=== PATIENT | male | born 1970 | race Caucasian/White ===

== ENCOUNTER → 2023-10-28 16:09 | Outpatient (REF) | payer OTHER, SELFPAY | LOC: RAD 16:09 | PROVIDERS: ATTENDING PHYSICIAN Nurse Practitioner Family; FAMILY PHYSICIAN Internal Medicine | DX: R05.3 Chronic cough (principal) | CPT/HCPCS: 71046 ==

== ENCOUNTER → 2023-11-07 14:00 | Outpatient (REF) | payer OTHER, SELFPAY | LOC: RAD 14:00 | PROVIDERS: ATTENDING PHYSICIAN Internal Medicine Hematology & Oncology; FAMILY PHYSICIAN Internal Medicine | DX: C18.4 Malignant neoplasm of transverse colon (principal) | CPT/HCPCS: 71260; 74177; Q9967 ==

== ENCOUNTER 2023-11-19 09:03 | Outpatient (REF) | payer OTHER, SELFPAY ==
[2023-11-19] VITALS (11 sets, daily range): BP systolic 88–111; BP diastolic 64–82
[2023-11-19 09:48] LABS: Hematocrit 36.2 % (39.0-52.0); Mean Corp Hgb Conc. 33.1 g/dL (33.0-37.0); Mean Corpuscular Hgb 30.4 pg (27.0-31.0); Mean Corpuscular Volume 91.6 fL (80.0-94.0); Mean Platelet Volume 10.8 fL (7.4-10.4); Platelet Count 151 10^3/uL (130-400); Red Blood Cell Count 3.95 10^6/uL (4.70-6.10); Red Cell Dist. Width 14.7 % (11.5-14.5); White Blood Cell Count 5.5 10^3/uL (4.8-10.8)
[2023-11-19 09:51] LABS: INR 1.22; PT 15.2 Sec (11.4-14.6)
[2023-11-19] MEDS: TYLENOL 650 MG PO (13:38)
== END 2023-11-19 13:54 | disposition home or self-care (01) ==
LOC: RADI 09:03
PROVIDERS: ATTENDING PHYSICIAN Internal Medicine Hematology & Oncology; FAMILY PHYSICIAN Internal Medicine
DX: C78.7 Secondary malignant neoplasm of liver and intrahepatic bile duct (principal); C18.4 Malignant neoplasm of transverse colon
CPT/HCPCS: 88305; 88307; 36415; 47000; 76705; 76942; 85027; 85610; 88333; 88341; 88342; 99152; 99153

== ENCOUNTER → 2023-12-02 07:35 | Outpatient (REF) | payer OTHER, SELFPAY ==
[2023-12-02 07:45] VITALS: BP 108/78; BP_SYST 84
[2023-12-02 09:10] VITALS: BP 104/75; BP_SYST 79
[2023-12-02 09:19] VITALS: BP 104/75; BP_SYST 79
[2023-12-02 09:20] VITALS: BP 104/75
[2023-12-02 11:40] LABS: Body Fluid Mononuclear 92.9 %; Body Fluid Polymorphonuclear 7.1 %; Body Fluid WBC 580 /CUMM
[2023-12-02 12:19] LABS: Body Fluid Second Tech EM
== END ==
LOC: RADI 07:35
PROVIDERS: ATTENDING PHYSICIAN Internal Medicine Hematology & Oncology; FAMILY PHYSICIAN Internal Medicine
DX: R18.8 Other ascites (principal)
CPT/HCPCS: 49083; 89051

== ENCOUNTER → 2023-12-06 08:39 | Outpatient (REF) | payer OTHER, SELFPAY ==
[2023-12-06 08:56] VITALS: BP 106/78; BP_SYST 81
[2023-12-06] MEDS: ANCEF 10 IV (09:50)
[2023-12-06 10:50] VITALS: BP 103/77; BP_SYST 75
[2023-12-06 11:11] VITALS: BP 95/75
== END ==
LOC: RADI 08:39
PROVIDERS: ATTENDING PHYSICIAN Internal Medicine Hematology & Oncology; FAMILY PHYSICIAN Internal Medicine
DX: C18.4 Malignant neoplasm of transverse colon (principal)
CPT/HCPCS: 36561; 76937; 77001; 99152; 99153; C1788

== ENCOUNTER → 2023-12-12 10:33 | Outpatient (REF) | payer OTHER, SELFPAY ==
[2023-12-12 12:05] VITALS: BP 119/84; BP_SYST 84
[2023-12-12 12:30] VITALS: BP 106/76
[2023-12-12 14:13] LABS: Body Fluid Mononuclear 87.1 %; Body Fluid Polymorphonuclear 12.9 %; Body Fluid WBC 766 /CUMM
[2023-12-12 14:41] LABS: Body Fluid Second Tech LD
== END ==
LOC: RADI 10:33
PROVIDERS: ATTENDING PHYSICIAN Internal Medicine Hematology & Oncology; FAMILY PHYSICIAN Internal Medicine
DX: C80.1 Malignant (primary) neoplasm, unspecified (principal); R18.0 Malignant ascites
CPT/HCPCS: 49083; 89051

== ENCOUNTER → 2023-12-17 12:24 | Outpatient (REF) | payer OTHER, SELFPAY ==
[2023-12-17 12:43] VITALS: BP 109/77; BP_SYST 78
[2023-12-17 13:20] VITALS: BP 113/84
[2023-12-17 14:19] LABS: Body Fluid Mononuclear 88.6 %; Body Fluid Polymorphonuclear 11.4 %; Body Fluid WBC 317 /CUMM
[2023-12-17 14:20] LABS: Body Fluid Second Tech HB
== END ==
LOC: RADI 12:24
PROVIDERS: ATTENDING PHYSICIAN Internal Medicine Hematology & Oncology; FAMILY PHYSICIAN Internal Medicine
DX: C18.4 Malignant neoplasm of transverse colon (principal); R18.0 Malignant ascites
CPT/HCPCS: 49083; 89051

== ENCOUNTER → 2023-12-25 07:49 | Outpatient (REF) | payer OTHER, SELFPAY ==
[2023-12-25 08:21] VITALS: BP 109/77; BP_SYST 90
[2023-12-25 09:03] VITALS: BP 105/74
[2023-12-25 11:48] LABS: Body Fluid Mononuclear 94.6 %; Body Fluid Polymorphonuclear 5.4 %; Body Fluid WBC 447 /CUMM
[2023-12-25 11:55] LABS: Body Fluid Second Tech CF
== END ==
LOC: RADI 07:49
PROVIDERS: ATTENDING PHYSICIAN Internal Medicine Hematology & Oncology; FAMILY PHYSICIAN Internal Medicine
DX: C18.4 Malignant neoplasm of transverse colon (principal); R18.0 Malignant ascites
CPT/HCPCS: 49083; 89051

== ENCOUNTER → 2023-12-26 10:14 | Outpatient (REF) | payer OTHER, SELFPAY | LOC: RAD 10:14 | PROVIDERS: ATTENDING PHYSICIAN Internal Medicine Hematology & Oncology; FAMILY PHYSICIAN Family Medicine | DX: I82.499 Acute embolism and thrombosis of other specified deep vein of unspecified lower extremity (principal); C18.4 Malignant neoplasm of transverse colon; R16.1 Splenomegaly, not elsewhere classified; K76.89 Other specified diseases of liver | CPT/HCPCS: 76700; 93975 ==

== ENCOUNTER → 2024-01-01 08:10 | Outpatient (REF) | payer OTHER, SELFPAY ==
[2024-01-01 08:25] VITALS: BP 106/78; BP_SYST 84
[2024-01-01 08:53] VITALS: BP 100/73
[2024-01-01 09:36] LABS: Body Fluid Mononuclear 95.4 %; Body Fluid Polymorphonuclear 4.6 %; Body Fluid WBC 433 /CUMM
[2024-01-01 09:39] LABS: Body Fluid Second Tech EF
== END ==
LOC: RADI 08:10
PROVIDERS: ATTENDING PHYSICIAN Internal Medicine Hematology & Oncology; FAMILY PHYSICIAN Internal Medicine
DX: C80.1 Malignant (primary) neoplasm, unspecified (principal); R18.0 Malignant ascites
CPT/HCPCS: 49083; 89051

== ENCOUNTER → 2024-01-08 12:59 | Outpatient (REF) | payer OTHER, SELFPAY ==
[2024-01-08 13:19] VITALS: BP 119/66; BP_SYST 73
[2024-01-08 14:31] LABS: Body Fluid Mononuclear 92.9 %; Body Fluid Polymorphonuclear 7.1 %; Body Fluid WBC 771 /CUMM
[2024-01-08 14:33] LABS: Body Fluid Second Tech AMA
== END ==
LOC: RADI 12:59
PROVIDERS: ATTENDING PHYSICIAN Internal Medicine Hematology & Oncology; FAMILY PHYSICIAN Internal Medicine
DX: R18.8 Other ascites (principal)
CPT/HCPCS: 49083; 89051

== ENCOUNTER → 2024-01-15 08:26 | Outpatient (REF) | payer OTHER, SELFPAY ==
[2024-01-15 08:30] VITALS: BP 122/89; BP_SYST 95
== END ==
LOC: RADI 08:26
PROVIDERS: ATTENDING PHYSICIAN Internal Medicine Hematology & Oncology; FAMILY PHYSICIAN Internal Medicine
DX: C80.1 Malignant (primary) neoplasm, unspecified (principal); R18.0 Malignant ascites; Z53.8 Procedure and treatment not carried out for other reasons
CPT/HCPCS: 76705

== ENCOUNTER → 2024-03-04 07:50 | Outpatient (REF) | payer OTHER, SELFPAY | LOC: HWRAD 07:50 | PROVIDERS: ATTENDING PHYSICIAN Nurse Practitioner Primary Care; FAMILY PHYSICIAN Internal Medicine | DX: C18.4 Malignant neoplasm of transverse colon (principal); R16.1 Splenomegaly, not elsewhere classified; K76.89 Other specified diseases of liver | CPT/HCPCS: 71260; 74177; Q9967 ==

== ENCOUNTER → 2024-03-26 16:54 | Outpatient (REF) | payer OTHER, SELFPAY ==
[2024-03-26 17:33] LABS: Ammonia 20 umol/L (9-30)
[2024-03-26 17:36] LABS: ALT (SGPT) 146 U/L (0-50); AST (SGOT) 142 U/L (17-59); Albumin 2.5 g/dl (3.5-5.0); Blood Urea Nitrogen 20 mg/dl (9-20); Calcium 8.3 mg/dl (8.4-10.2); Carbon Dioxide 29 mmol/L (22-30); Chloride 93 mmol/L (98-107); Glucose 120 mg/dl (70-99); Potassium 5.3 mmol/L (3.5-5.1); Sodium 127 mmol/L (135-145); Total Bilirubin 7.6 mg/dl (0.2-1.3); Total Protein 4.8 g/dl (6.3-8.2); eGFR > 60.00
[2024-03-26 17:48] LABS: Alkaline Phosphatase 1982 U/L (38-126)
== END ==
LOC: REG 16:54
PROVIDERS: ATTENDING PHYSICIAN Nurse Practitioner Adult Health; FAMILY PHYSICIAN Internal Medicine
DX: C18.4 Malignant neoplasm of transverse colon (principal); R16.1 Splenomegaly, not elsewhere classified; K76.89 Other specified diseases of liver
CPT/HCPCS: 36415; 80053; 82140; 82248

== ENCOUNTER → 2024-04-03 07:23 | Outpatient (REF) | payer OTHER, SELFPAY ==
[2024-04-03 07:50] VITALS: BP 118/88; BP_SYST 112
[2024-04-03 08:30] VITALS: BP 113/89
[2024-04-03 08:46] LABS: ALT (SGPT) 204 U/L (0-50); AST (SGOT) 251 U/L (17-59); Albumin 2.2 g/dl (3.5-5.0); Alkaline Phosphatase 2162 U/L (38-126); Blood Urea Nitrogen 38 mg/dl (9-20); Calcium 8.4 mg/dl (8.4-10.2); Carbon Dioxide 20 mmol/L (22-30); Chloride 91 mmol/L (98-107); Direct Bilirubin 14.2 mg/dl (0.0-0.4); Glucose 93 mg/dl (70-99); Potassium 6.1 mmol/L (3.5-5.1); Sodium 122 mmol/L (135-145); Total Bilirubin 16.1 mg/dl (0.2-1.3); Total Protein 4.9 g/dl (6.3-8.2); eGFR 47.02
[2024-04-03 09:21] LABS: Body Fluid Mononuclear 7.9 %; Body Fluid Polymorphonuclear 92.1 %; Body Fluid WBC 35600 /CUMM
[2024-04-03 09:25] LABS: Body Fluid Second Tech ASW
== END ==
LOC: RADI 07:23
PROVIDERS: ATTENDING PHYSICIAN Internal Medicine Hematology & Oncology; FAMILY PHYSICIAN Internal Medicine; OTHER PHYSICIAN Nurse Practitioner Adult Health
DX: C18.4 Malignant neoplasm of transverse colon (principal); R18.0 Malignant ascites
CPT/HCPCS: 36415; 49083; 80053; 82248; 89051

== ENCOUNTER 2024-04-03 15:20 | Inpatient (IN) | payer OTHER, SELFPAY ==
[2024-04-03] VITALS (17 sets, daily range): BP systolic 91–124; BP diastolic 66–91; BMI 25.2; BMI 25.5
--- NOTE | 2024-04-03 09:26 | ED.GENMED ---
History of Present Illness
<Rolly Silva PA-C - Last Filed: 04/03/24 14:11>
General
Chief Complaint: Abdominal Pain
Source: patient
Exam Limitations: none
Time Seen by Provider: 04/03/24 09:10
History of Present Illness
History of Present Illness:
53-year-old male with known history of metastatic colon cancer with mets to the liver and lung presents from the interventional radiology after paracentesis. He had 3900 mL fluid drained from his abdomen. He notes increased pain to the upper
abdomen and lower chest specifically with breathing. This has been getting worse over the past several days. He started a new chemotherapy on the fourth of this month. Since then he has been jaundiced and has had more fluid in his abdomen. He is
moving his bowels and has been no vomiting. Interventional radiology concerned about his pain and sent him over for evaluation. Also interventional radiology had outpatient labs drawn which demonstrated low sodium and high potassium.
Phy Exam
<Rolly Silva PA-C - Last Filed: 04/03/24 14:11>
Physical Exam
Physical Exam:
General: Ill-appearing male quite jaundiced no acute respiratory distress
HEENT: Normocephalic mucosa dry neck is supple
Heart: Regular rate and rhythm
Lungs: Clear no wheeze abdomen soft diffusely tender no guarding or rebound
Skin is jaundiced
Extremities: Mild pitting edema bilateral lower extremities
Neurologic exam: Alert and oriented x 3 no facial asymmetry or slurred speech
Course
<Rolly Silva PA-C - Last Filed: 04/03/24 14:11>
Orders/Labs/Results
Orders:
Orders
04/03/24 08:50
Electrocardiogram (*1) Urgent
Reason for Study: Fatigue / Weakness
Other Reason for Exam: Hyperkalemia
EKG- Treatment ONCE
04/03/24 09:24
CT Pe/abd/pel W Urgent
Reason For Exam: PLEURITIC PAIN, ABD PAIN
Morphine Sulfate 4 mg IV NOW STA
Ondansetron HCl [Zofran] 4 mg PO NOW STA
04/03/24 09:49
Osmolality, Random Urine Urgent
Urine Sodium Urgent
04/03/24 09:58
Ondansetron Injectable [Zofran] 4 mg IV NOW STA
04/03/24 10:15
Complete Blood Count/With Diff Urgent
Comprehensive Metabolic Panel Urgent
Lipase Urgent
PTT Urgent
Prothrombin Time Urgent
Serum Osmolality Urgent
Albumin Human 25% 100 ml [Flexbumin] 25 grams in 100 ml IV TODAY
04/03/24 11:18
Piperacillin/Tazo 3.375 Gram [Zosyn] 3.375 gram in 50 ml IV NOW
Vancomycin [Vancocin] 2,000 mg 0.9% Sodium Chloride 500 ml [Nss] 500 ml IV NOW
04/03/24 11:47
Lactic Acid Q4H
Comment: CANCEL 2nd LACTIC ACID IF 1st LACTIC ACID IS LESS THAN 2
Blood Culture Q30M
CLAUDIA Source: Blood/Venous
Specimen Description:
04/03/24 12:00
Blood Culture Q30M
CLAUDIA Source: Blood/Venous
Specimen Description:
04/03/24 13:11
Dextrose 50%-Water [Dextrose 50% Syringe] 25 grams IV NOW STA
Insulin Human Regular [Novolin R] 10 units IV NOW STA
04/03/24 13:12
Urinalysis Routine
Urine Creatinine Routine
Urine Sodium Routine
04/03/24 13:15
Dextrose 5%/Water 1000 ml [D5w] 1,000 ml Sodium Bicarbonate 150 meq IV 70 mls/hr
04/03/24 15:30
Lactic Acid Q4H
Comment: CANCEL 2nd LACTIC ACID IF 1st LACTIC ACID IS LESS THAN 2
04/03/24 17:00
Basic Metabolic Panel Routine
Abnormal Lab Results
04/03/24 04/03/24
10:15 11:47
WBC 51.6 H* 10^3/uL
(4.8-10.8)
MCV 98.5 H fL
(80.0-94.0)
MCH 32.2 H pg
(27.0-31.0)
MCHC 32.7 L g/dL
(33.0-37.0)
RDW 23.3 H %
(11.5-14.5)
Abs Immat Gran (auto) 1.4 H 10^3/uL
(0-0.05)
Absolute Neuts (auto) 45.1 H 10^3/uL
(1.4-6.5)
Absolute Monos (auto) 3.4 H 10^3/uL
(0.1-0.6)
Immature Gran % 2.7 H %
(0-0.5)
Neutrophils % 87.4 H %
(42.2-75.2)
Lymphocytes % 2.3 L %
(20.5-51.1)
PT 21.8 H Sec
(11.4-14.6)
APTT 49.9 H Sec
(23.4-35.0)
Sodium 123 L mmol/L
(135-145)
Potassium 5.8 H mmol/L
(3.5-5.1)
Chloride 91 L mmol/L
(98-107)
Carbon Dioxide 17 L mmol/L
(22-30)
BUN 40 H mg/dl
(9-20)
Creatinine 1.5 H mg/dL
(0.7-1.3)
Serum Osmolality 273 L mOsm/kg
(275-300)
Lactic Acid 5.7 H* mmol/L
(0.7-2.0)
Total Bilirubin 16.4 H mg/dl
(0.2-1.3)
AST 267 H U/L
(17-59)
ALT 188 H U/L
(0-50)
Alkaline Phosphatase 2301 H U/L
(38-126)
Total Protein 5.1 L g/dl
(6.3-8.2)
Albumin 2.2 L g/dl
(3.5-5.0)
04/03/24 10:15
Vital Signs
Initial and Last Documented VS:
Initial Vital Signs
Temp Pulse Resp BP Pulse Ox
97.6 F 116 20 114/81 96
04/03/24 08:52 04/03/24 08:52 04/03/24 08:52 04/03/24 08:52 04/03/24 08:52
Last Documented Vital Signs
Temp Pulse Resp BP Pulse Ox
97.6 F 98 16 110/75 93
04/03/24 08:52 04/03/24 13:45 04/03/24 14:05 04/03/24 14:00 04/03/24 13:45
<Christopher Lewis MD - Last Filed: 04/03/24 09:42>
Orders/Labs/Results
Orders:
Orders
04/03/24 08:50
Electrocardiogram (*1) Urgent
Reason for Study: Fatigue / Weakness
Other Reason for Exam: Hyperkalemia
EKG- Treatment ONCE
04/03/24 09:24
CT Pe/abd/pel W Urgent
Reason For Exam: PLEURITIC PAIN, ABD PAIN
Morphine Sulfate 4 mg IV NOW STA
Ondansetron HCl [Zofran] 4 mg PO NOW STA
04/03/24 09:49
Osmolality, Random Urine Urgent
Urine Sodium Urgent
04/03/24 09:58
Ondansetron Injectable [Zofran] 4 mg IV NOW STA
04/03/24 10:15
Complete Blood Count/With Diff Urgent
Comprehensive Metabolic Panel Urgent
Lipase Urgent
PTT Urgent
Prothrombin Time Urgent
Serum Osmolality Urgent
Albumin Human 25% 100 ml [Flexbumin] 25 grams in 100 ml IV TODAY
04/03/24 11:18
Piperacillin/Tazo 3.375 Gram [Zosyn] 3.375 gram in 50 ml IV NOW
Vancomycin [Vancocin] 2,000 mg 0.9% Sodium Chloride 500 ml [Nss] 500 ml IV NOW
04/03/24 11:47
Lactic Acid Q4H
Comment: CANCEL 2nd LACTIC ACID IF 1st LACTIC ACID IS LESS THAN 2
Blood Culture Q30M
CLAUDIA Source: Blood/Venous
Specimen Description:
04/03/24 12:00
Blood Culture Q30M
CLAUDIA Source: Blood/Venous
Specimen Description:
04/03/24 13:11
Dextrose 50%-Water [Dextrose 50% Syringe] 25 grams IV NOW STA
Insulin Human Regular [Novolin R] 10 units IV NOW STA
04/03/24 13:12
Urinalysis Routine
Urine Creatinine Routine
Urine Sodium Routine
04/03/24 13:15
Dextrose 5%/Water 1000 ml [D5w] 1,000 ml Sodium Bicarbonate 150 meq IV 70 mls/hr
04/03/24 15:30
Lactic Acid Q4H
Comment: CANCEL 2nd LACTIC ACID IF 1st LACTIC ACID IS LESS THAN 2
04/03/24 17:00
Basic Metabolic Panel Routine
Abnormal Lab Results
04/03/24 04/03/24
10:15 11:47
WBC 51.6 H* 10^3/uL
(4.8-10.8)
MCV 98.5 H fL
(80.0-94.0)
MCH 32.2 H pg
(27.0-31.0)
MCHC 32.7 L g/dL
(33.0-37.0)
RDW 23.3 H %
(11.5-14.5)
Abs Immat Gran (auto) 1.4 H 10^3/uL
(0-0.05)
Absolute Neuts (auto) 45.1 H 10^3/uL
(1.4-6.5)
Absolute Monos (auto) 3.4 H 10^3/uL
(0.1-0.6)
Immature Gran % 2.7 H %
(0-0.5)
Neutrophils % 87.4 H %
(42.2-75.2)
Lymphocytes % 2.3 L %
(20.5-51.1)
PT 21.8 H Sec
(11.4-14.6)
APTT 49.9 H Sec
(23.4-35.0)
Sodium 123 L mmol/L
(135-145)
Potassium 5.8 H mmol/L
(3.5-5.1)
Chloride 91 L mmol/L
(98-107)
Carbon Dioxide 17 L mmol/L
(22-30)
BUN 40 H mg/dl
(9-20)
Creatinine 1.5 H mg/dL
(0.7-1.3)
Serum Osmolality 273 L mOsm/kg
(275-300)
Lactic Acid 5.7 H* mmol/L
(0.7-2.0)
Total Bilirubin 16.4 H mg/dl
(0.2-1.3)
AST 267 H U/L
(17-59)
ALT 188 H U/L
(0-50)
Alkaline Phosphatase 2301 H U/L
(38-126)
Total Protein 5.1 L g/dl
(6.3-8.2)
Albumin 2.2 L g/dl
(3.5-5.0)
04/03/24 10:15
Vital Signs
Initial and Last Documented VS:
Initial Vital Signs
Temp Pulse Resp BP Pulse Ox
97.6 F 116 20 114/81 96
04/03/24 08:52 04/03/24 08:52 04/03/24 08:52 04/03/24 08:52 04/03/24 08:52
Last Documented Vital Signs
Temp Pulse Resp BP Pulse Ox
97.6 F 98 16 110/75 93
04/03/24 08:52 04/03/24 13:45 04/03/24 14:05 04/03/24 14:00 04/03/24 13:45
<Rolly Silva PA-C - Last Filed: 04/03/24 14:11>
MDM/Problems Addressed
Differential Diagnosis Includes:
Patient here with increased lower chest and upper abdominal pain with known history of colon cancer with metastasis to the liver and lung. The pain is pleuritic. Consider worsening progression of underlying disease versus PE versus ascites. He
had almost 4 L drained this morning. Review of labs drawn this morning demonstrated a sodium of 122 and a potassium of 6.1 with a bilirubin of 16. Will treat patient's pain with morphine and Zofran. Did order PE study of chest send CT scan of
abdomen
<Rolly Silva PA-C - Last Filed: 04/03/24 14:11>
*Critical Care Note
Total Time (30-74mins, 75-104mins- exclusive of procedures): Not Applicable
<KAT Lema Last Filed: 04/03/24 14:11>
Update Note
Update Note:
Patient reevaluated. CT scan of the chest abdomen pelvis is negative for PE but increased amount of pulmonary metastasis, increased amount of hepatic metastasis and now newer appearing splenic metastasis. White blood cell count is 51,000 with a
lactic of 5.7. Patient has been evaluated by nephrology for the hyponatremia. Vancomycin Zosyn ordered. Will admit to hospital
ED Attending Note
<Rolly Silva PA-C - Last Filed: 04/03/24 14:11>
-
Portions of this chart may have been created with voice recognition software.� Occasional wrong word or��sound alike� substitutions may have occurred due to the inherent limitations of voice recognition software.
<Christopher Lewis MD - Last Filed: 04/03/24 09:42>
ED Attending Note
Patient seen and examined by attending physician: Yes
I performed the substantive portion of visit, reviewed & personally made and approve the management plan that is documented in note by myself or MATILDA.: Yes
ED Attending Note:
53-year-old male known history of metastatic: CA. Presents with increased weakness since his last chemotherapy treatment, upper abdominal pain and elevated abnormal labs. Patient presents after paracentesis. Fluid apparently looked okay per IR.
On exam patient is chronically ill-appearing. Jaundiced and icteric. Weak appearing. Mildly tachycardic. No respiratory distress. Abdomen with moderate epigastric tenderness. No rebound or guarding no mass or hernia.
Feet are mildly cool bilaterally with bilateral pitting edema. Areas of superficial erythematous changes to the abdominal wall bilaterally.
Impression is metastatic CA with abdominal pain weakness elevated LFTs. Workup in progress including CAT scans, management of hyponatremia and hyperkalemia. Will discuss with nephrology. Clearly warrants admission.
Discharge Plan
Departure
Patient Disposition: Admit
Date of Disposition: 04/03/24
Time of Disposition: 14:10
Admit to: IMU
Presentation/result/management discussed w/ accepting MD/DO: Hospitalist
Discharge Problem:
Acute hyponatremia, Leukocytosis
Prescriptions:
No Action
simvastatin 40 mg Tablet
40 mg PO HS
furosemide [Lasix] 20 mg Tablet
20 mg PO DAILY
spironolactone [Aldactone] 50 mg Tablet
50 mg PO DAILY
pantoprazole [Protonix] 40 mg Tablet,Delayed Release (Dr/Ec)
40 mg PO BID
dexamethasone 4 mg Tablet
4 mg PO DAILY
ibuprofen [Advil] 200 mg Tablet
400 mg PO DAILYPRN PRN (Reason: MILD PAIN)
mupirocin 2 % Ointment
1 applic TOPICAL QID
mirtazapine 7.5 mg Tablet
7.5 mg PO HS
calcium carbonate-vitamin D3 [Calcium 600 + D(3)] 600 mg-10 mcg (400 unit) Tablet
1 tab PO DAILY
levocetirizine [Xyzal] 5 mg Tablet
5 mg PO DAILY
Referrals:
Michael Bustamante DO [Family Provider] -
Interventions
Interventions:
*Risk Screen - Suicide Last Done: 04/03/24 09:41
*General Assessment Last Done: 04/03/24 09:40
*Neglect/Abuse Screening Last Done: 04/03/24 09:41
*ED COVID-19 Vaccine History Last Done: 04/03/24 09:40
QT-Gygzpf-Qmircuxwnr Assessment Last Done: 04/03/24 09:42
Discharge Date and Time
Print Language: GRENADIAN
[2024-04-03] MEDS: MORPHINE SULFATE 4 MG IV (10:09)
[2024-04-03] MEDS: FLEXBUMIN 100 IV (10:16)
[2024-04-03 11:06] LABS: % Basophils 0.3 % (0-2); % Eosinophils 0.2 % (0-6); % Immature Granulocytes 2.7 % (0-0.5); % Lymphocytes 2.3 % (20.5-51.1); % Monocytes 6.6 % (1.7-9.3); % Neutrophils 87.4 % (42.2-75.2); Absolute Basophils 0.2 10^3/uL (0-0.2); Absolute Immature Granulocytes 1.4 10^3/uL (0-0.05); Absolute Lymphocytes 1.2 10^3/uL (1.2-3.4); Absolute Monocytes 3.4 10^3/uL (0.1-0.6); Absolute Neutrophils 45.1 10^3/uL (1.4-6.5); Hematocrit 44.9 % (39.0-52.0); Hemoglobin 15.4 g/dL (13.0-18.0); Mean Corp Hgb Conc. 32.7 g/dL (33.0-37.0); Mean Corpuscular Hgb 32.2 pg (27.0-31.0); Mean Corpuscular Volume 98.5 fL (80.0-94.0); Nucleated Red Blood Cells % 0.1 % (-); Platelet Count 132 10^3/uL (130-400); Red Blood Cell Count 4.75 10^6/uL (4.70-6.10); Red Cell Dist. Width 23.3 % (11.5-14.5); White Blood Cell Count 51.6 10^3/uL (4.8-10.8)
[2024-04-03 11:13] LABS: INR 1.84; PT 21.8 Sec (11.4-14.6)
[2024-04-03 11:14] LABS: APTT 49.9 Sec (23.4-35.0)
[2024-04-03 11:15] LABS: ALT (SGPT) 188 U/L (0-50); AST (SGOT) 267 U/L (17-59); Albumin 2.2 g/dl (3.5-5.0); Blood Urea Nitrogen 40 mg/dl (9-20); Calcium 8.4 mg/dl (8.4-10.2); Carbon Dioxide 17 mmol/L (22-30); Chloride 91 mmol/L (98-107); Glucose 78 mg/dl (70-99); Lipase 132 U/L (23-300); Potassium 5.8 mmol/L (3.5-5.1); Sodium 123 mmol/L (135-145); Total Bilirubin 16.4 mg/dl (0.2-1.3); Total Protein 5.1 g/dl (6.3-8.2)
[2024-04-03 11:48] LABS: Osmolality Serum 273 mOsm/kg (275-300)
[2024-04-03] MEDS: ZOSYN 50 IV (11:54)
[2024-04-03 12:02] LABS: Alkaline Phosphatase 2301 U/L (38-126); Estimated Creatinine Clearance 56 ml/min; eGFR 54.64
[2024-04-03 12:26] LABS: Lactic Acid 5.7 mmol/L (0.7-2.0)
[2024-04-03] MEDS: VANCOCIN 540 MG IV (12:46)
--- NOTE | 2024-04-03 13:03 | W.CON.NEPH ---
Consultation
-
Date/Time Consultation Requested: 04/03/2024 10 AM
Date/Time Consultation Performed: 04/03/2024 1 PM
Requesting Provider: Rolly Wild
Performing Provider: Dr. Marcum
Reason for Consultation: RASHIDA, hyperkalemia
Medical History
-
Chief Complaint: Pain
History of Present Illness:
This is a 53-year-old gentleman who has unfortunate metastatic colon cancer after resection back in 2019 for stage I colon cancer. He began chemotherapy in December with FOLFOX. Unfortunately this had shown no improvement on imaging studies and
this was converted to FOLFIRINOX. He has also been receiving Avastin which has been held for some time now given low platelet count. Recently his chemotherapy was also held due to a rectal tear. His last chemo was March 11. The reports
that since his last chemo change he appears to have worsened. He has had worsening edema and increased paracentesis frequencies. He was today at interventional radiology for paracentesis which was completed but had significant pain and was sent to
emergency room. There he was noted to have elevated potassium levels as well as hyponatremia.
Past Medical History
GERD, hiatal hernia, hyperlipidemia, hypertension, sleep apnea, right hemicolectomy, metastatic colon cancer
Social History
Tobacco: Non-Smoker
Alcohol: Occasional
Family History
Family History: Not Pertinent
Allergies / Home Medications
Allergy/AdvReac Type Severity Reaction Status Date / Time
No Known Allergies Allergy Verified 04/03/24 08:53
�Medication �Instructions �Recorded �Confirmed �Type
simvastatin 40 mg tablet 40 mg PO HS 12/06/23 04/03/24 History
furosemide 20 mg tablet (Lasix) 20 mg PO DAILY 01/01/24 04/03/24 History
spironolactone 50 mg tablet 50 mg PO DAILY 01/01/24 04/03/24 History
(Aldactone)
calcium 600 mg (as 1 tab PO DAILY 04/03/24 04/03/24 History
carbonate)-vitamin D3 10 mcg (400
unit) tablet (Calcium 600 + D(3))
dexamethasone 4 mg tablet 4 mg PO DAILY 04/03/24 04/03/24 History
ibuprofen 200 mg tablet (Advil) 400 mg PO DAILYPRN PRN MILD PAIN 04/03/24 04/03/24 History
levocetirizine 5 mg tablet (Xyzal) 5 mg PO DAILY 04/03/24 04/03/24 History
mirtazapine 7.5 mg tablet 7.5 mg PO HS 04/03/24 04/03/24 History
mupirocin 2 % topical ointment 1 applic topical QID BOTH HANDS 04/03/24 04/03/24 History
pantoprazole 40 mg tablet,delayed 40 mg PO BID 04/03/24 04/03/24 History
release (Protonix)
Review of Systems
-
Diffuse abdominal pain
No chest pain or shortness of breath. No issues with urination. No lightheadedness
All other systems: Negative unless noted
Physical Exam
Vital Signs
Vital Signs
Temp Pulse Resp BP Pulse Ox
97.6 F 102 16 104/77 92
04/03/24 08:52 04/03/24 12:00 04/03/24 12:08 04/03/24 12:00 04/03/24 12:00
Lab Results
WBC 51.6 10^3/uL (4.8-10.8) H* 04/03/24 10:15
RBC 4.75 10^6/uL (4.70-6.10) 04/03/24 10:15
Hgb 15.4 g/dL (13.0-18.0) 04/03/24 10:15
Hct 44.9 % (39.0-52.0) 04/03/24 10:15
Plt Count 132 10^3/uL (130-400) 04/03/24 10:15
Sodium 123 mmol/L (135-145) L 04/03/24 10:15
Potassium 5.8 mmol/L (3.5-5.1) H 04/03/24 10:15
Chloride 91 mmol/L (98-107) L 04/03/24 10:15
Carbon Dioxide 17 mmol/L (22-30) L 04/03/24 10:15
BUN 40 mg/dl (9-20) H 04/03/24 10:15
Creatinine 1.5 mg/dL (0.7-1.3) H 04/03/24 10:15
eGFR 54.64 04/03/24 10:15
Glucose 78 mg/dl (70-99) 04/03/24 10:15
Calcium 8.4 mg/dl (8.4-10.2) 04/03/24 10:15
Albumin 2.2 g/dl (3.5-5.0) L 04/03/24 10:15
Laboratory Tests
11/19/23 03/26/24 04/03/24
09:16 17:12 11:47
WBC 5.5
Plt Count 151
Sodium 127 L
Potassium 5.3 H
Creatinine 0.7
Lactic Acid 5.7 H*
CT chest abdomen and pelvis with IV contrast on 04/03/2024
IMPRESSION:
1). Extensive pulmonary metastasis, slightly increased in both size and number in the interval since the prior study
2). Extensive hepatic metastasis, stable compared with the prior study including partially calcified lesion suggesting prior therapy
3). New patchy infiltration of the enlarged spleen suggesting new splenic metastasis
4). Portal hypertension with splenomegaly
5). Stable small-moderate volume ascites in the abdomen and pelvis
6). Right hemicolectomy with ileocolic anastomosis in the proximal transverse colon
Physical Exam
Patient is awake alert oriented and in no distress. Mood and affect were pleasant, insight and judgment were good. Pupils are equal round and reactive to light, extraocular movements are intact, sclera were anicteric. Hearing was normal, ears and
nose are intact. Oropharynx was clear. Neck was supple with trachea midline and no thyromegaly. Heart was regular rate and rhythm without rubs. Lower extremities with 3+ edema. Lungs were clear to auscultation bilaterally and with normal
excursion. Abdomen was soft, diffusely tender, with normal active bowel sounds, and no hepatosplenomegaly. Skin was without rash and with normal turgor.
Data Reviewed
-
CT Scan: Report Reviewed by me
Medical Tests (Nuc Med, Echo etc): Image Personally Visualized and interpreted (EKG on 04/03/2024 by my reading shows sinus tachycardia inferior Q)
Labs: Labs Reviewed by me
Old Records: Reviewed
Assessment/Plan
-
Assessment
Metastatic colon cancer to lung, spleen, liver
RASHIDA
Hyponatremia
Hyperkalemia
Metabolic acidosis/lactic acidosis
Abdominal pain
Status post large-volume paracentesis
Edema
Significant leukocytosis
Plan
Holding spironolactone. He had only 1 dose of ibuprofen yesterday, 4 mg.
No further NSAIDs
Follow BMP, he is at high risk for RASHIDA given paracentesis, diuretics, ibuprofen, contrast exposure
IV fluids with bicarbonate
Treat potassium medically, insulin D50
Will hold on Lokelma given abdominal pain
Check urine studies
Lactate level may be elevated simply because of liver dysfunction from metastatic disease.
Blood cultures
Empiric antibiotics
Discussed with
Critical care time spent 31 minutes
[2024-04-03] MEDS: DEXTROSE 50% SYRINGE 25 GRAMS IV (14:59)
[2024-04-03] MEDS: NOVOLIN R 10 UNITS IV (14:59)
[2024-04-03] MEDS: SODIUM BICARBONATE 1150 MEQ IV (15:04)
--- NOTE | 2024-04-03 15:17 | HPS.HSE ---
Addendum entered and electronically signed by Chani Liu MD, Resident 04/03/24 16:35:
FAMILY ELECTED FOR INPATIENT HOSPICE
Original Note:
Family Physician
<Chani Liu MD, Resident - Last Filed: 04/03/24 16:21>
-
Family Physician: Michael Bustamante
Chief Complaint
<Chani Liu MD, Resident - Last Filed: 04/03/24 16:21>
-
Abdominal pain
History of Present Illness
53-year-old man with metastatic colon cancer after resection back in 2019 for stage I colon cancer. The reports that since his last chemo change he appears to have worsened states that patient started to feel unwell in October of this year
and he saw Dr. Flor hematology oncology. They did imaging on the patient and found out mets to his liver. Patient began his chemotherapy in December 2023 with FOLFOX. Unfortunately this had shown no improvement on imaging studies and this
was converted to FOLFIRInox. He has been receiving Avastin which has been held for some time now given low platelet count. Recently his chemotherapy was also held due to rectal tear. His last chemo was in March 11. He has had worsening edema
and increased paracentesis frequencies. He was today at interventional radiology for paracentesis which was completed but had significant abdominal pain and was sent to emergency room. There he was noted to have elevated potassium levels as well
as hyponatremia.
Patient is awake alert oriented and in no distress. Pupils are equal and reactive to light. Icteric sclera. Sinus tachycardia, clear to auscultation bilaterally. Abdomen is diffusely tender to touch with normal bowel sounds.
CT scan of the abdominal pelvis shows extensive pulmonary metastasis increased in both size and number in the interval since the prior study. There are also new patchy infiltration of the enlarged spleen suggesting new splenic metastasis
Medical History
<Chani Liu MD, Resident - Last Filed: 04/03/24 16:21>
Past Medical History
Past Medical History: Reports Cancer (Colon cancer mets to liver) and HTN
Past Surgical History: Reports Other (Colon resection)
Social History
Tobacco: Non-smoker
Alcohol: Occasional
Drug: None
Personal:
Living: With Family
Family History
Family History: Not pertinent
Allergies / Home Medications
Allergies reflects when Allergies were last updated in [employer].
Home Medications with original date entered in [employer]
Allergy/Medication List:
Allergies
Allergy/AdvReac Type Severity Reaction Status Date / Time
No Known Allergies Allergy Verified 04/03/24 08:53
Home Medications
simvastatin 40 mg tablet 40 mg PO HS 12/06/23
furosemide 20 mg tablet (Lasix) 20 mg PO DAILY 01/01/24
spironolactone 50 mg tablet (Aldactone) 50 mg PO DAILY 01/01/24
calcium 600 mg (as carbonate)-vitamin D3 10 mcg (400 unit) tablet (Calcium 600 + D(3)) 1 tab PO DAILY 04/03/24
dexamethasone 4 mg tablet 4 mg PO DAILY 04/03/24
ibuprofen 200 mg tablet (Advil) 400 mg PO DAILYPRN PRN MILD PAIN 04/03/24
levocetirizine 5 mg tablet (Xyzal) 5 mg PO DAILY 04/03/24
mirtazapine 7.5 mg tablet 7.5 mg PO HS 04/03/24
mupirocin 2 % topical ointment 1 applic topical QID BOTH HANDS 04/03/24
pantoprazole 40 mg tablet,delayed release (Protonix) 40 mg PO BID 04/03/24
Review of Systems
<Chani Liu MD, Resident - Last Filed: 04/03/24 16:21>
-
History Source: Patient and Family
Abdomen/GI: Reports Abdominal Pain
Physical Exam
<Chani Liu MD, Resident - Last Filed: 04/03/24 16:21>
Vital Signs
Vital Signs
Temp Pulse Resp BP Pulse Ox
97.6 F 98 16 110/75 86
04/03/24 15:11 04/03/24 13:45 04/03/24 14:05 04/03/24 14:00 04/03/24 15:11
Physical Exam
General: Other (Appears tired and in pain)
HEENT: NormoCephalic and Other (Icteric)
Respiratory: Clear
Cardiac: S1/S2
GI: Normal Bowel Sounds, Tender (Diffusely) and Distended
Musculoskeletal: Other (3+ pitting edema LE bilateral)
Neuro: AO x 3
Laboratory Results
<Chani Liu MD, Resident - Last Filed: 04/03/24 16:21>
-
04/03/24 10:15
Laboratory Results
PT 21.8 Sec (11.4-14.6) H 04/03/24 10:15
INR 1.84 04/03/24 10:15
APTT 49.9 Sec (23.4-35.0) H 04/03/24 10:15
Lactic Acid 5.7 mmol/L (0.7-2.0) H* 04/03/24 11:47
Total Bilirubin 16.4 mg/dl (0.2-1.3) H 04/03/24 10:15
AST 267 U/L (17-59) H 04/03/24 10:15
ALT 188 U/L (0-50) H 04/03/24 10:15
Alkaline Phosphatase 2301 U/L (38-126) H 04/03/24 10:15
Lipase 132 U/L (23-300) 04/03/24 10:15
Data Reviewed
<Chani Liu MD, Resident - Last Filed: 04/03/24 16:21>
-
CT Scan: Image Personally Visualized and interpreted, Report Reviewed by me and Discussed with Physician
Lab Data: Labs Reviewed by me and Discussed with Physician
Impression/Plan
<Chani Liu MD, Resident - Last Filed: 04/03/24 16:21>
-
IMPRESSION:
Sepsis secondary to metastatic colon cancer
Diffuse abdominal pain
Acute transaminitis
Significant elevation of alk phos
Lactic acidosis
Significant leukocytosis
RASHIDA
Hyponatremia
hyperkalemia
PLAN:
Sepsis secondary to metastatic colon cancer
Admitted to IMU
Elevated lactic acid levels
Meets SIRS criteria with leukocyte 51,000 and heart rate 98
Blood cultures
IV fluids with bicarb
IV Zosyn and vancomycin
Repeat BMP
Continue to trend lactic acid levels
Monitor blood pressure with MAP above 65
ConsultGI
Patient likely to decline quickly due to possible acute liver failure, hepatorenal syndrome, hepatic encephalopathy
Diffuse abdominal pain
S/p 3900 cc of chylous yellow ascitic fluid was evacuated
IV morphine
IV Zofran for nausea
Trend lactate levels
Acute transaminitis
Significantly elevated alkaline phosphatase
Significant Hyperbilirubenima .
Likely due to mets to the liver
Lactic acidosis/metabolic acidosis
Trend lactic acid levels
Significant leukocytosis
Secondary to sepsis
Trend WBC count and monitor temperature curve
Acute kidney injury
Creatinine 1.5
IV fluids
Trend creatinine levels
Hypovolemic hyponatremia
Nephrology following
IV fluids with bicarb
Hold further NSAIDs.
Check urine sodium, urine osmolality, urine creatinine
Hyperkalemia
Insulin D50
Hold Lokelma
Hold spironolactone
DVT prophylaxis heparin or Lovenox
Full code
<Kole Alvarado, DO - Last Filed: 04/03/24 16:33>
-
IMPRESSION:
Sepsis secondary to metastatic colon cancer
Diffuse abdominal pain
Acute transaminitis
Significant elevation of alk phos
Lactic acidosis
Significant leukocytosis
RASHIDA
Hyponatremia
hyperkalemia
PLAN:
Sepsis secondary to metastatic colon cancer
Admitted to IMU
Elevated lactic acid levels
Meets SIRS criteria with leukocyte 51,000 and heart rate 98
Blood cultures
IV fluids with bicarb
IV Zosyn and vancomycin
Repeat BMP
Continue to trend lactic acid levels
Monitor blood pressure with MAP above 65
ConsultGI
Patient likely to decline quickly due to possible acute liver failure, hepatorenal syndrome, hepatic encephalopathy
Diffuse abdominal pain
S/p 3900 cc of chylous yellow ascitic fluid was evacuated
IV morphine
IV Zofran for nausea
Trend lactate levels
Acute transaminitis
Significantly elevated alkaline phosphatase
Significant Hyperbilirubenima .
Likely due to mets to the liver
Lactic acidosis/metabolic acidosis
Trend lactic acid levels
Significant leukocytosis
Secondary to sepsis
Trend WBC count and monitor temperature curve
Acute kidney injury
Creatinine 1.5
IV fluids
Trend creatinine levels
Hypovolemic hyponatremia
Nephrology following
IV fluids with bicarb
Hold further NSAIDs.
Check urine sodium, urine osmolality, urine creatinine
Hyperkalemia
Insulin D50
Hold Lokelma
Hold spironolactone
The patient's , who is his power of third mate, has elected for hospice care. Likely appropriate for inpatient hospice. Will admit to med/surg, ideally second floor room. Comfort measures order set started with Roxanol and Ativan.
[2024-04-03] MEDS: MORPHINE SULFATE 1 MG IV ×3 (16:55→20:09)
--- NOTE | 2024-04-03 17:03 | HOSPNOTE ---
Notified by physician that patient was in the Ed and has elected for comfort measures. Reviewed to place patient on comfort measures and request a bed on 2 [address]. Unable to verify patients insurance coverage for inpatient hospice at this time. Also
patient has only needed 1 dose of iv morphine at 10 am and does not meet inpatient criteria at this present time as well. Reviewed hospice will follow through the weekend and will be available for support. If patient is with us come Saturday and
inpatient eligible we can then verify inpatient hospice coverage via insurance. I called and spoke to patients spouse and updated her as well. She is in agreement with this plan. Emotional support provided. Hospice will continue to follow and be
available.
--- NOTE | 2024-04-03 17:51 | CM ---
CM spoke with family and they are agreeable to hospice. They would like to pursue home hospice. JOSE updated screening technician. Referral sent via [facility].
--- NOTE | 2024-04-03 20:30 | PTCARENOTE ---
Received pt into room 2127, assist x3 pullover to bed. AAOx3. Pt in 09/15 pain throughout abdomen, PRN morphine administered. See JUN. IVF running at 70ml/hr. Received in report from ED, as per admitting resident, no further labs need to be taken due
to being admitted on comfort measures. and Daughter at bedside, along with other family. Pt resting comfortably in bed, call isabel within reach.
[2024-04-03] MEDS: BACTROBAN 2% OINTMENT 1 APPLIC TOPICAL (22:24)
[2024-04-04] MEDS: MORPHINE SULFATE 1 MG IV ×8 (00:55→16:19)
[2024-04-04 06:30] LABS: Urine Albumin Trace (Neg - Trace); Urine Bilirubin 3+ (Negative); Urine Character Slightly Cloudy (Clear); Urine Color Straw; Urine Glucose Negative (Negative); Urine Ketone Trace (Negative); Urine Leukocyte Trace (Negative); Urine Nitrite Positive (Negative); Urine Occult Blood 2+ (Negative); Urine Urobilinogen 3+ (Neg - 1+)
[2024-04-04 07:10] VITALS: BP 107/74
[2024-04-04] MEDS: SODIUM BICARBONATE 1150 MEQ IV (07:20)
[2024-04-04 07:21] LABS: Osmolality Urine 419 mOsm/kg (300-900)
[2024-04-04 07:30] LABS: Urine Sodium 22 mmol/L (30-90)
[2024-04-04 07:35] LABS: Urine White Cell 30-40 /HPF (0-5)
[2024-04-04 07:36] LABS: Urine Bacteria Few (Negative); Urine Hyaline Cast >15 /LPF (0-2)
[2024-04-04 07:37] LABS: Urine Mucus Few
[2024-04-04 07:38] LABS: Urine Squamous Cell 0-2 /LPF (Few)
[2024-04-04] MEDS: DECADRON 4 MG PO (08:12)
[2024-04-04] MEDS: LASIX 20 MG PO (08:12)
[2024-04-04] MEDS: BACTROBAN 2% OINTMENT 1 APPLIC TOPICAL ×3 (08:20→20:30)
--- NOTE | 2024-04-04 15:04 | W.PN.HOSP.TC ---
Addendum entered and electronically signed by Kole Alvarado DO 04/07/24 11:46:
Patient was pending hospice care, however prior to initiation of hospice. He was DNR/DNI, on comfort measures with morphine drip.
Original Note:
Today's Communication/Plan
-
Comfort measures
Planning for home hospice
Start diet
Assessment / Plan
Assessment / Plan
IMPRESSION:
Sepsis of unclear etiology, possible SBP versus UTI
Metastatic colon cancer with worsening despite FOLFIRINOX
New splenic metastases
Worsening pulmonary and liver metastases
Diffuse abdominal pain
Concern for acute liver failure
Lactic acidosis
Significant leukocytosis
RASHIDA
Hyponatremia
hyperkalemia
PLAN:
Comfort measures. Planning for home hospice, case management and hospice teams are following. Ordered diet for today.
Will discuss with hospice team if Lasix and Aldactone can be used for prevention of recurrent ascites. Suspect that this would be under the pretense of comfort based medications as ascites is not a pleasant experience and these medications would
not likely prolong life to the point where his suffering would be extended.
Anticipated Discharge: 24 - 48 hours
Subjective/Interval History
-
Date of Service: April 04, 2024
Seen and examined at the bedside. No acute events reported since admission. AFVSS this morning
Daughter and present. I updated at the bedside. Family prefers home hospice if possible
History limited from encephalopathy
Objective Data
-
Vital Signs:
Vital Signs
Temp Pulse Resp BP Pulse Ox
96.9 F L 124 18 107/74 91
04/04/24 07:10 04/04/24 08:12 04/04/24 07:10 04/04/24 08:12 04/04/24 07:55
I&O
04/03/24 04/04/24 04/05/24
06:59 06:59 06:59
Intake Total 560 / 560
Output Total 1020 / 1020
Balance -460 / -460
Review of Systems
-
History Source: Patient
All other systems: Reviewed and negative
Physical Exam
-
General: Well Developed, Well Nourished, No Apparent Distress and Comfortable
HEENT: Normocephalic, Atraumatic, Moist Mucous Membranes and Other (Scleral icterus present)
Respiratory: Clear to Auscultation and Non Labored Respirations
Cardiac: Regular Rhythm and S1/S2; Negative Murmur, Rub or Gallop
GI: Soft, Nondistended, Normal Bowel Sounds and Tender (Generalized)
Musculoskeletal: No Clubbing, No Cyanosis and No Edema
Skin: Warm and Dry; Negative Rash
Neuro: Sedated and Nonfocal/Grossly Intact
Psych: Calm
--- NOTE | 2024-04-04 17:00 | PTCARENOTE ---
Alerted by family that patient began coughing up blood. Doctor notified; suction set up in room. Morphine given as ordered. Received new orders to begin patient on morphine drip with bolus.
[2024-04-04] MEDS: MORPHINE SULFATE 2 MG IV (17:08)
[2024-04-04] MEDS: MORPHINE 100 IV (17:09)
[2024-04-04] MEDS: BACTROBAN 2% OINTMENT TOPICAL (17:23)
[2024-04-04 23:14] VITALS: BP 96/62
--- NOTE | 2024-04-05 00:52 | W.PN.DEATH ---
Pronouncement of
-
Called to see patient to pronounce.
No spontaneous heart tones or respirations noted.
Patient not responsive to verbal stimuli.
Patient is pronounced .
Time of : 00:10
Date of : 04/05/24
Cause of : colon cancer
Family Notified: Yes (daughter and present)
--- NOTE | 2024-04-05 01:30 | PTCARENOTE ---
Entered room to place Mckeon catheter, family informed me that they believe he had passed. No breath or heart sounds noted. Notified GENNY Coronel. TOE [employer]OWNS at bedside to pronounce. [facility] called. Post mortem care performed. Emotional support
to the family provided.
== END 2024-04-05 02:18 | disposition expired | DRG 871 ==
LOC: 2 NORTH 15:20
PROVIDERS: Nurse Practitioner Gerontology; Physician Assistant; ADMITTING PHYSICIAN Internal Medicine; EMERGENCY PHYSICIAN Emergency Medicine; FAMILY PHYSICIAN Internal Medicine; OTHER PHYSICIAN Specialist
DX: A41.9 Sepsis, unspecified organism (principal); K72.00 Acute and subacute hepatic failure without coma; C18.9 Malignant neoplasm of colon, unspecified; N17.9 Acute kidney failure, unspecified; C78.00 Secondary malignant neoplasm of unspecified lung; C78.7 Secondary malignant neoplasm of liver and intrahepatic bile duct; E87.20 Acidosis, unspecified; E87.1 Hypo-osmolality and hyponatremia; E87.5 Hyperkalemia; Z66 Do not resuscitate; Z51.5 Encounter for palliative care; E86.1 Hypovolemia
CPT/HCPCS: 71275; 74177; 80053; 81003; 81015; 82570; 83605; 83690; 83930; 83935; 84300; 85025; 85610; 85730; 87040; 87086; 87149; 87186; 87205; 93005; 96365; 96366; 96375; 99285; J2997; P9047; Q9967